=== PATIENT | male | born 1965 | race Caucasian/White ===

== ENCOUNTER 2018-06-24 05:50 | Day surgery (SDC) | payer OTHER | END 2018-06-24 11:00 | disposition home or self-care (01) | LOC: AMB-ENDOS 05:50 | DX: K29.50 Unspecified chronic gastritis without bleeding (principal); K64.2 Third degree hemorrhoids ==

== ENCOUNTER 2019-07-05 02:15 | Inpatient (IN) | payer OTHER ==
[~2019-07-05] VITALS: Ht 274.3 cm; Wt 5.0 kg
[2019-07-05] MEDS ORDERED: NEXIUM40 M1 (02:35)
--- NOTE | 2019-07-05 02:40 | NUR ---
SE RECIBE PTE ALERTA Y ORIENTADO X3 ACOMPANADO DE FAMILIAR, PTE REFIERE VENIR POR HEMORROIDE TROMBOSADO, PTE CON REFERIDO DE DR. BRAMBILA PARA LLEVAR A PTE A FABIANA DE OPERACIONES. SE MIDEN S/V APTE Y SE COLOCA EN AREA DE SEC. K.
--- NOTE | 2019-07-05 03:54 | NUR ---
SE RECIBE PTE MASCULINO DE 53 YRS ALERTA CONCIENTE Y TRANQUILO EN COMPANIA DE FAMILIUAR. PTE ES EVALUADO POR EL QUEIN ORDENA TRATAMIENTO LA CUAL SE EJECUTA ORDEN MEDICA, SE CRISTIAN MEDIDAS ASEPTICAS CON PROCEDIMIENTO. SE OBSERVA POR CAMBIOS EN CHAUHAN CONDICION. PTE CONSULTADO CON EL KOSTA CARRIZALES.
--- NOTE | 2019-07-05 07:17 | NUR ---
PACIENTE ALERTA Y ORIENTADO POR MICHELLE ESFERAS EN COMPANIA DE FAMILIAR. SE OBSERVA R/L @ 125ML/HR. PACIENTE CON BUEN PATRON RESPIRATORIO Y PIEL TIBIA AL TACTO. PENDIENTE CONSULTA CON DR. BRAMBILA.
== END 2019-07-07 17:26 | disposition home or self-care (01) | DRG 348 ==
LOC: ER 02:15 → SEC-K 08:25 → SURH 08:25
PROVIDERS: ADMIT Colon & Rectal Surgery
PROC: 06BY0ZC Excision of Hemorrhoidal Plexus, Open Approach (ICD-10-PCS; principal; 2019-07-05 10:00)
DX: K64.2 Third degree hemorrhoids (principal); K92.1 Melena; K21.9 Gastro-esophageal reflux disease without esophagitis